=== PATIENT | female | born 1955 | race Caucasian/White ===

== ENCOUNTER 2021-11-22 10:35 | Emergency (ER) | payer MEDICARE ==
[~2021-11-22 10:35] MED LIST: ALEVE220 MG PO; ASPIRIN EC81 MG PO; CALCIUM WITH V1 EAC1 PO; LOVAZA1 GM PO; PERCOCET 10/321 EACH PO; PRINIVIL20 MG PO; TURMERIC500 M1 PO; ZOLOFT50 MG PO
[2021-11-22] MEDS ORDERED: TAMOXIFEN CITRA20 MG PO (10:49)
[2021-11-22] MEDS ORDERED: COZAAR50 MG PO (10:50)
== END 2021-11-22 11:36 | disposition home or self-care (01) ==
LOC: FER 10:35
DX: L23.7 Allergic contact dermatitis due to plants, except food (principal); I10 Essential (primary) hypertension
CPT/HCPCS: 99282; J2930